=== PATIENT | female | born 1940 | race Caucasian/White ===

== ENCOUNTER 2017-05-20 13:53 | Inpatient (IN) | payer OTHER, MEDICARE ==
[~2017-05-20] VITALS: Ht 162.6 cm; Wt 88.0 kg
[~2017-05-20 13:53] MED LIST: ALPR.25 PO; CYAN1000P SQ; CYMB30CA PO; LEVO.125 PO; LISI-360 PO; LORTA5 PO; MAGN1SOL2 PO; NORC10TA2 PO; STOO100C PO; TRIA50 PO; ZOCO80TA PO
[2017-05-20] MEDS ORDERED: ROPI1TAB72 PO (16:01)
[2017-05-20] MEDS ORDERED: DULO1CAP3 PO (16:01)
[2017-05-20] MEDS ORDERED: LYRI75CA PO (16:01)
[2017-05-20] MEDS ORDERED: ALLO100T PO (16:07)
[2017-05-20] MEDS ORDERED: NORC5TAB (16:07)
[2017-05-20] MEDS ORDERED: CLOP75TA PO (16:14)
[2017-05-20] MEDS ORDERED: ASPI-516 PO (16:14)
[2017-05-20] MEDS ORDERED: [UNRECOGNIZED DRUG - CODE] IM (16:14)
[2017-05-20] MEDS ORDERED: TRIA37.53 PO (16:14)
[2017-05-20] MEDS ORDERED: POTA10CA PO (16:17)
[2017-05-20] MEDS ORDERED: TRIA1CAP6 PO (16:17)
[2017-05-20] MEDS ORDERED: LEVO175T2 PO (16:17)
[2017-05-20] MEDS ORDERED: LISI-519 PO (16:17)
[2017-05-20] MEDS ORDERED: ALUMINUM/MAGNESIUM/SIMETH 30 ML CUP PO PRN (17:45)
[2017-05-20] MEDS ORDERED: LORazepam 2 MG/ML VIAL IV PUSH PRN ×4 (17:45)
[2017-05-20] MEDS ORDERED: MAGNESIUM HYDROXIDE SUSP 30 ML CUP PO PRN (17:45)
[2017-05-20] MEDS ORDERED: ACETAMINOPHEN 325 MG TAB PO PRN (17:45)
[2017-05-20] MEDS ORDERED: diphenhydrAMINE HCL 50 MG CAP PO PRN (17:45)
[2017-05-20] MEDS ORDERED: LORazepam 1 MG TAB PO PRN (17:45)
[2017-05-20] MEDS ORDERED: LORazepam 2 MG TAB PO PRN (17:45)
[2017-05-20] MEDS ORDERED: diphenhydrAMINE HCL 50 MG/ML VIAL IM PRN (17:45)
[2017-05-20] MEDS ORDERED: FLUMAZENIL 0.5 MG/5 ML VIAL IV PUSH PRN (17:45)
[2017-05-20] MEDS ORDERED: NICOTINE 21 MG/24 HR PATCH T-DERMAL PRN (17:45)
[2017-05-20 17:49] VITALS: BP 132/75; PULSE 86; RESP 18; TEMP 98.6
[2017-05-20 18:21] VITALS: BP 132/75; PULSE 86; RESP 18; TEMP 98.6; O2SAT 100
[2017-05-20] MEDS ORDERED: ATORVASTATIN 40 MG TAB PO SCH (21:00)
[2017-05-21 05:35] VITALS: BP 136/62; PULSE 82; RESP 17; TEMP 96.9; O2SAT 98
[2017-05-21] MEDS ORDERED: LEVOTHYROXINE SODIUM 100 MCG TAB PO SCH (06:00)
[2017-05-21] MEDS ORDERED: LEVOTHYROXINE SODIUM 75 MCG TAB PO SCH ×2 (06:00)
[2017-05-21 07:55] LABS: ANION GAP 10 MEQ/L (5-15); BICARBONATE 22.5 MEQ/L (21.0-32.0); BLOOD UREA NITROGEN 18 MG/DL (7-18); CHLORIDE 99 MEQ/L (98-107); GLOMERULAR FILTRATION RATE 77 ML/MIN (>89); HDL CHOLESTEROL 82.4 MG/DL (40.0-60.0); LDL CHOLESTEROL 74 MG/DL (0-99); POTASSIUM 4.3 MEQ/L (3.5-5.1); SODIUM (NA) 131 MEQ/L (136-145)
[2017-05-21] MEDS ORDERED: ALLOPURINOL 100 MG TAB PO SCH (09:00)
[2017-05-21] MEDS ORDERED: TRIAMTERENE/HCTZ 37.5 MG/25 MG CAP PO SCH (09:00)
[2017-05-21] MEDS ORDERED: ASPIRIN 81 MG CHEW TAB PO SCH (09:00)
[2017-05-21] MEDS ORDERED: PREGABALIN 75 MG CAP PO SCH (09:00)
[2017-05-21] MEDS ORDERED: CLOPIDOGREL 75 MG TAB PO SCH (09:00)
[2017-05-21] MEDS ORDERED: LISINOPRIL 5 MG TAB PO SCH (09:00)
[2017-05-21] MEDS ORDERED: POTASSIUM CHLORIDE 10 MEQ CAP PO SCH (09:00)
[2017-05-21] MEDS ORDERED: DULoxetine HCl DR 60 MG CAP PO SCH (09:00)
[2017-05-21] MEDS ORDERED: INFLUENZA VIRUS VACCINE (QUADRIVALENT) 0.5 ML SYR IM ONE (10:00)
--- NOTE | 2017-05-21 10:12 | PD.CONS ---
HPI Service [facility] Consult Requested By Reason for Consult medical management. Primary Care Physician Rah Martin M.D. Diagnoses: History of Present Illness patient is a 76 y/o female with history of CVA, hypertension,hypothyroidism,who' s been admitted to the psych unit because of depression. she says that she was seen at [facility] a few times last week because of UTI. she says that the last time that she was there she said that ' she would just lay her head on the floor'- raised the concern about depression and suicidal thoughts for which she was sent to the psych unit. at the time of my evaluation she was resting comfortably with no distress. she denies any suicidal ideas at this time. she's complaining of some urinay urgency but with no dysuria or gross hematuria. otherwise with no chest pain, sob, cough, abdominal pain. of note she says that since she ' wasn't feeling fine she probably missed some of her levothyroxine doses'. Review of Systems Constitutional: DENIES: Fever, Weight loss, Chills, Night Sweats Eyes: DENIES: Blurred vision, Diplopia, Vision loss, Double Vision Ears, nose, mouth, throat: DENIES: Tinnitus, Vertigo, Throat pain, Epistaxis Respiratory: DENIES: Apneas, Cough, Snoring, Wheezing, Hemoptysis, Sputum production, Shortness of breath Cardiovascular: DENIES: Chest pain, Palpitations, Syncope, Dyspnea on Exertion , PND, Lower Extremity Edema, Orthopnea, Claudication Gastrointestinal: DENIES: Abdominal pain, Black stools, Bloody stools, Constipation, Diarrhea, Nausea, Vomiting, Difficulty Swallowing, Anorexia Genitourinary: COMPLAINS OF: Urgency, DENIES: Hematuria, Dysuria Musculoskeletal: DENIES: Joint pain, Muscle aches, Stiffness, Joint Swelling Integumentary: DENIES: Rash Neurologic: DENIES: Abnormal gait, Headache, Localized weakness, Paresthesias, Seizures, Speech Problems, Tremor, Poor Balance Psychiatric: DENIES: Anxiety, Confusion, Mood changes, Depression, Hallucinations, Agitation, Suicidal Ideation, Homicidal Ideation, Delusions Past Family Social History Allergies: Coded Allergies: ciprofloxacin (Unverified Allergy, Severe, HIVES, 02/06/17) diatrizoate meglumine (Unverified Allergy, Severe, HIVES, 02/06/17) ferrous fumarate (Unverified Allergy, Severe, HIVES, 02/06/17) ferrous sulfate (Unverified Allergy, Severe, HIVES, 02/06/17) ferumoxytol (Unverified Allergy, Severe, HIVES, 02/06/17) gadobenic acid (Unverified Allergy, Severe, HIVES, 02/06/17) gadodiamide (Unverified Allergy, Severe, HIVES, 02/06/17) gadoteridol (Unverified Allergy, Severe, HIVES, 02/06/17) iodixanol (Unverified Allergy, Severe, HIVES, 02/06/17) iohexol (Unverified Allergy, Severe, HIVES, 02/06/17) iron (Unverified Allergy, Severe, HIVES, 02/06/17) metronidazole (Unverified Allergy, Severe, HIVES, 02/06/17) multivitamin infusion, adult no.4 with vitamin K (Unverified Allergy, Severe, HIVES, 02/06/17) multivitamin with iron,other minerals (Unverified Allergy, Severe, HIVES, 02/06/17) penicillin G (Unverified Allergy, Severe, HIVES, 02/06/17) Sulfa (Sulfonamide Antibiotics) (Unverified Allergy, Unknown, 02/06/17) azithromycin (Unverified Allergy, Unknown, 02/06/17) doxycycline (Unverified Allergy, Unknown, 02/06/17) levofloxacin (Unverified Allergy, Unknown, 02/06/17) Past Medical History CVA hypertension hypothyroidism Past Surgical History knee surgery loop recorder placement colostomy Reported Medications aspirin plavix lipitor lisinopril triamterene/HCTZ lyrica allopurinol Active Ordered Medications Current Medications Diphenhydramine HCl (Benadryl) 25 mg Q6H PRN PO For mild anxiety and/or EPS; Start 05/20/17 at 17:45; Status Future Hold Diphenhydramine HCl (Benadryl Inj) 25 mg Q6H PRN IM For mild anxiety and/or EPS ; Start 05/20/17 at 17:45; Status Future Hold Acetaminophen (Tylenol) 650 mg Q4H PRN PO Pain 1-5 or Temp >101F; Start at 17:45 Magnesium Hydroxide (Milk Of Magnesia Liq) 30 ml DAILY PRN PO CONSTIPATION; Start 05/20/17 at 17:45 Al Hydrox/Mg Hydrox/Simethicone (Mag-Al Plus Susp Liq) 30 ml Q6H PRN PO DYSPEPSIA; Start 05/20/17 at 17:45 Nicotine (Habitrol 21 Mg Patch.24 Hr) 1 patch DAILY PRN T-DERMAL Nicotine craving; Start 05/20/17 at 17:45 Flumazenil (Romazicon Inj) 0.2 mg Q1M PRN IV PUSH SEE LABEL COMMENTS; Start at 17:45 Lorazepam (Ativan) 1 mg Q4H PRN PO CIWA 8 - 10; Start 05/20/17 at 17:45 Lorazepam (Ativan Inj) 1 mg Q4H PRN IV PUSH CIWA 8 - 10; Start 05/20/17 at 17: 45 Lorazepam (Ativan) 2 mg Q2H PRN PO CIWA 11-14; Start 05/20/17 at 17:45 Lorazepam (Ativan Inj) 2 mg Q2H PRN IV PUSH CIWA 11-14; Start 05/20/17 at 17: 45 Lorazepam (Ativan Inj) 2 mg Q1H PRN IV PUSH CIWA 15-20; Start 05/20/17 at 17: 45 Lorazepam (Ativan Inj) 2 mg Q15M PRN IV PUSH CIWA > 20; Start 05/20/17 at 17: 45 Allopurinol (Zyloprim) 100 mg DAILY PO Last administered on 05/21/17 09:49; Start 05/21/17 at 09:00 Aspirin (Aspirin Chew) 81 mg DAILY PO Last administered on 05/21/17 09:49; Start 05/21/17 at 09:00 Clopidogrel Bisulfate (Plavix) 75 mg DAILY PO Last administered on 05/21/17 09:48; Start 05/21/17 at 09:00 Duloxetine HCl (Cymbalta Dr) 120 mg DAILY PO Last administered on 05/21/17 09 :48; Start 05/21/17 at 09:00 Lisinopril (Prinivil) 5 mg DAILY PO Last administered on 05/21/17 09:49; Start 05/21/17 at 09:00 Potassium Chloride (KCl) 10 meq DAILY PO Last administered on 05/21/17 09:49 ; Start 05/21/17 at 09:00 Pregabalin (Lyrica) 75 mg DAILY PO Last administered on 05/21/17 09:49; Start 05/21/17 at 09:00 Ropinirole HCl (Requip) 1 mg HS PO Last administered on 05/20/17 22:00; Start 05/20/17 at 21:00 Triamterene/HCTZ (Dyazide 37.5-25 Mg) 1 cap DAILY PO Last administered on 05/21 09:49; Start 05/21/17 at 09:00 Atorvastatin Calcium (Lipitor) 40 mg HS PO Last administered on 05/20/17 22: 00; Start 05/20/17 at 21:00 Levothyroxine Sodium (Synthroid) 175 mcg DAILY@0600 PO ; Start 05/21/17 at 06: 00; Stop 05/21/17 at 06:00; Status DC Levothyroxine Sodium (Synthroid) 100 mcg DAILY@0600 PO Last administered on 05:43; Start 05/21/17 at 06:00 Levothyroxine Sodium (Synthroid) 75 mcg DAILY@0600 PO Last administered on 05:43; Start 05/21/17 at 06:00 Influenza Virus Vaccine (Flu (Quadrivalent) Vaccine Inj) 0.5 ml ONCE ONCE IM Last administered on 05/21/17 09:55; Start 05/21/17 at 10:00; Stop 05/21/17 at 10:01 Family History not relevant to this consult. Social History no smoking or drinking. Physical Exam Vital Signs Vital Signs Date Time Temp Pulse Resp B/P (MAP) Pulse Ox O2 Delivery O2 Flow Rate FiO2 05/21/17 05:35 96.9 82 17 136/62 (86) 98 05/20/17 18:21 98.6 86 18 132/75 (94) 100 05/20/17 17:49 98.6 86 18 132/75 (94) Physical Exam GENERAL: This is a well-nourished, well-developed patient, in no apparent distress. SKIN: No rashes, ecchymoses or lesions. Cool and dry. HEAD: Atraumatic. Normocephalic. No temporal or scalp tenderness. EYES: Pupils equal round and reactive. Extraocular motions intact. No scleral icterus. No injection or drainage. ENT: Nose without bleeding, purulent drainage or septal hematoma. Throat without erythema, tonsillar hypertrophy or exudate. Uvula midline. Airway patent. NECK: Trachea midline. No JVD or lymphadenopathy. Supple, nontender, no meningeal signs. CARDIOVASCULAR: Regular rate and rhythm without murmurs, gallops, or rubs. RESPIRATORY: Clear to auscultation. Breath sounds equal bilaterally. No wheezes , rales, or rhonchi. GASTROINTESTINAL: Abdomen soft, non-tender, nondistended. No hepato-splenomegaly , or palpable masses. No guarding. MUSCULOSKELETAL: Extremities without clubbing, cyanosis, or edema. No joint tenderness, effusion, or edema noted. No calf tenderness. Negative Homans sign bilaterally. NEUROLOGICAL: Awake and alert. Cranial nerves II through XII intact. Motor and sensory grossly within normal limits. Five out of 5 muscle strength in all muscle groups. Normal speech. Laboratory Laboratory Tests Test 05/21/17 06:44 Blood Urea Nitrogen 18 Creatinine 0.74 Random Glucose 110 Calcium Level 10.2 Sodium Level 131 Potassium Level 4.3 Chloride Level 99 Carbon Dioxide Level 22.5 Anion Gap 10 Estimat Glomerular Filtration Rate 77 Triglycerides Level 168 Cholesterol Level 190 LDL Cholesterol 74 HDL Cholesterol 82.4 Cholesterol/HDL Ratio 2.30 Thyroid Stimulating Hormone 3rd Gen 34.900 Result Diagram: 05/21/17 0644 Assessment and Plan Assessment and Plan A/P - suicidal thoughts- management per psych -history of CVA- resumed aspirin, plavix and statin -history of hypertension; resumed home meds; lisinopril/ Dyazide -hypothyroidism with elevated TSH- likely due to noncompliance ( says that she probably missed a few doses)- resumed Levothyroxine- repeat TSH in 2-3 weeks. -recent UTI- repeat UA thank you for the consult. Discussed Condition With the patient and RN. Lindsay Bran MD May 21, 2017 10:12
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
[2017-05-21 20:35] LABS: HEMOGLOBIN A1a 1.2 %; HEMOGLOBIN A1b 2.1 %; HEMOGLOBIN Ao 84.8 %; HEMOGLOBIN P3 3.6 %
== END 2017-05-21 13:15 | disposition home or self-care (01) | DRG 882 ==
LOC: H250 16:55 → H260 19:17
PROVIDERS: ADMIT Psychiatry & Neurology Psychiatry; ATTEND Psychiatry & Neurology Psychiatry
DX: F43.25 Adjustment disorder with mixed disturbance of emotions and conduct (principal); R45.851 Suicidal ideations; Z91.19 Patient's noncompliance with other medical treatment and regimen; I10 Essential (primary) hypertension; E66.9 Obesity, unspecified; E03.9 Hypothyroidism, unspecified; Z23 Encounter for immunization; Z68.33 Body mass index [BMI] 33.0-33.9, adult; Z86.73 Personal history of transient ischemic attack (TIA), and cerebral infarction without residual deficits; Z87.440 Personal history of urinary (tract) infections
CPT/HCPCS: 80048; 80061; 83036; 84443; 90686; Q2038

== ENCOUNTER 2017-12-12 06:12 | Day surgery (SDC) | payer OTHER ==
[2017-12-12] VITALS (9 sets, daily range): BP systolic 100–148; BP diastolic 52–71; PULSE 78–88; RESP 18; TEMP 97.6–98.5; O2SAT 98–99
[~2017-12-12] VITALS: Ht 160 cm; Wt 87.1 kg
[~2017-12-12 06:12] MED LIST changes: +ALLO100T PO; +ASPI-516 PO; +CLOP75TA PO; -CYAN1000P SQ; -CYMB30CA PO; +DULO1CAP3 PO; -LEVO.125 PO; -LISI-360 PO; +LISI-519 PO; -LORTA5 PO; +LYRI75CA PO; -MAGN1SOL2 PO; +NORC5TAB; +POTA10CA PO; +ROPI1TAB72 PO; -STOO100C PO; +TRIA1CAP6 PO; +TRIA37.53 PO; -TRIA50 PO; +[UNRECOGNIZED DRUG - CODE] IM
[2017-12-12] MEDS ORDERED: IODIXANOL 320 MG/ML 50 ML VIAL (for Cath Lab) OTHER ONE (06:13)
[2017-12-12] MEDS ORDERED: CHLORHEXIDINE GLUCONATE 2 % 1 PACK (2 CLOTHS) TOPICAL SCH (06:45)
[2017-12-12] MEDS ORDERED: VANCOMYCIN 1000 MG/NS 200 ML IV SCH (06:45)
[2017-12-12] MEDS ORDERED: NS 1000 ML IV SCH (06:45)
[2017-12-12] MEDS ORDERED: MUPIROCIN 2% OINT 1 APPLIC/GM SYR NASAL SCH (06:45)
[2017-12-12] MEDS ORDERED: SIMV40TA PO (06:57)
[2017-12-12] MEDS ORDERED: ALPR.25 PO (06:57)
[2017-12-12] MEDS ORDERED: ALLE60TA PO (06:57)
[2017-12-12] MEDS ORDERED: [UNRECOGNIZED DRUG - REMARK] PO (06:57)
[2017-12-12] MEDS ORDERED: LEVO125T4 PO (06:57)
[2017-12-12 08:04] LABS: AUTOMATED NEUTROPHIL # 3.6 TH/MM3 (1.8-7.7); BASOPHIL % 0.9 % (0.0-2.0); EOSINOPHIL # 0.2 TH/MM3 (0-0.4); EOSINOPHIL % 3.3 % (0.0-4.0); HEMATOCRIT 32.5 % (35.0-46.0); HEMOGLOBIN 10.8 GM/DL (11.6-15.3); LYMPH % 23.8 % (9.0-44.0); LYMPHOCYTE # 1.4 TH/MM3 (1.0-4.8); MEAN CELL VOLUME 88.2 FL (80.0-100.0); MEAN CORPUSCULAR HEMOGLOBIN 29.3 PG (27.0-34.0); MEAN CORPUSCULAR HGB CONC 33.2 % (32.0-36.0); MEAN PLATELET VOLUME 7.5 FL (7.0-11.0); MONO % 9.5 % (0.0-8.0); MONOCYTE # 0.5 TH/MM3 (0-0.9); NEUT % 62.5 % (16.0-70.0); PLATELET COUNT 213 TH/MM3 (150-450); RED BLOOD COUNT 3.69 MIL/MM3 (4.00-5.30); RED CELL DISTRIBUTION WIDTH 15.5 % (11.6-17.2); WHITE BLOOD COUNT 5.7 TH/MM3 (4.0-11.0)
[2017-12-12] MEDS ORDERED: METOPROLOL TARTRATE 25 MG TAB PO PRN (08:30)
[2017-12-12] MEDS ORDERED: LACTATED RINGER'S 1000 ML IV PRN (08:30)
[2017-12-12] MEDS ORDERED: SODIUM CHLORID 0.9% 500 ML IV PRN (08:30)
[2017-12-12 09:05] LABS: PROTHROMBIN TIME - PATIENT 10.4 SEC (9.8-11.6)
[2017-12-12 09:17] LABS: BICARBONATE 21.2 MEQ/L (21.0-32.0); CALCIUM 9.9 MG/DL (8.5-10.1); CREATININE 0.84 MG/DL (0.50-1.00)
[2017-12-12] MEDS ORDERED: PHENYLEPH/NS 1000 MCG/10 ML SYR IV ONE (12:00)
[2017-12-12] MEDS ORDERED: PROPOFOL 200 MG/20 ML AMP IV ONE (12:00)
[2017-12-12] MEDS ORDERED: LIDOCAINE HCL 1% PF 5 ML SYRINGE OTHER ONE (12:00)
--- NOTE | 2017-12-12 13:42 | EKG ---
Date Performed: 12/12/2017 Time Performed: 07:40:32 PTAGE: 77 years EKG: Possible ectopic atrial rhythm. Left axis deviation IV conduction defect Abnormal ECG PREVIOUS TRACING : 06/16/2015 14.24 DOCTOR: Jhon Crump Interpretating Date/Time 12/12/2017 13:41:45
[2017-12-12] MEDS ORDERED: HYDROCORTISONE SOD SUCCINATE 100 MG VIAL ONE (16:00)
[2017-12-12] MEDS ORDERED: diphenhydrAMINE HCL 50 MG/ML VIAL ONE (16:01)
[2017-12-12] MEDS ORDERED: FAMOTIDINE 20 MG/2 ML VIAL ONE (16:01)
[2017-12-12] MEDS ORDERED: HEPARIN-NS/PF INJ 500 ML ONE ×2 (16:04→16:21)
[2017-12-12] MEDS ORDERED: HEPARIN SODIUM - IV 10,000 UNITS/10 ML VIAL ONE (16:22)
[2017-12-12] MEDS ORDERED: MIDAZOLAM HCL 2 MG/2 ML VIAL ONE (17:18)
--- NOTE | 2017-12-12 17:30 | CATHPROC ---
Patient Name: FLAKO MILES Study #: [id number] Initial MD: Adrian Dolan Date of : 1940 Study Date: 12/12/2017 Cardiac Catheterization Report 12/12/2017 5:29:48 PM Financial #: [id number] 1 of 9 Patient Name: FLAKO MILES Study #: [id number] Initial MD: Adrian Dolan Date of : 1940 Study Date: 12/12/2017 Entire Case Report Patient Information Patient Name FLAKO MILES Date of 1940 Age 77 years Financial # [id number] Gender F AlternateID Lab Number 6 Room Number DC05 Height (in) 63.0 Height (cm) 160.0 BSA 1.90 Weight (lbs) 191.0 Weight (kg) 86.8 Patient Address/Phone Number Home Address [facility] Home Phone Number [phone] [facility] [id number] Study Information Study Number Admission Scheduled Start Study Start [id number] Dec 12 2017 6:12AM 12/12/2017 Dec 12 2017 3:43PM [place] [facility] Cardiac Pacer/ICD Admit Source Facility Department Other [facility] - [employer] Repairer Physician and Clinical Staff Initial Adrian Zapata Nuclear Technician Darling Turk,RN Nuclear Technician Bhupinder HoffmanRT(R) Other Anesthesia, LABEL PRESS OPERATOR Recorder Alissa Hernandez RN Scrub Melissa Rosales,RT(R) TECH2 12/12/2017 5:29:48 PM Financial #: [id number] 2 of 9 Patient Name: FLAKO MILES Study #: [id number] Initial MD: Adrian Dolan Date of : 1940 Study Date: 12/12/2017 Equipment Time Volunteer Coordinator Description Size Mfg Part Number Used/Scraped BIOSENSE REDDY [id number] 16:16 SET, TUBING COOLFLOW * Used INC. *[id number] 15:53 COOK/PACER DILATOR SET (MICRA) FR8-12 Used *[id number] WIRE, GUIDE AMPLATZ STIFF [id number] 15:53 COOK/PACER 3MMJ Used 180CM *[id number] 15:53 [employer] BLANKET,WARM AIR CCL * Used *[id number] 15:53 [employer] PACK, CCL CUSTOM * Used *[id number] 15:53 [employer] PACER ALLEN, LIMB * 2530 *[id number] Used [id number] 15:53 NAMIC TUBING, HIGH PRESSURE 20" 20" Used *[id number] 16:14 NYCOMED OMNIPAQUE, 350 MG, 50ML 50ML [id number] Used SUTURE, 0 ETHIBOND [CT1] (CX21D), 8pk 15:53 VITATRON MEDTRON[employer] MONITOR, PACEMAKER\\ICD 16464 *[id number] Used SYSTEM, TRANS-CATHETER [id number] 15:53 VITATRON [employer]ON[employer] Used PACING (MICRA) *[id number] SYSTEM, TRANS-CATHETER [id number] 16:16 VITATRON [employer] Used PACING (MICRA) *[id number] Insurance Information Insurance Payor Private Health Insurance Third Republican Third Republican Number [employer] [facility] 12/12/2017 5:29:48 PM Financial #: [id number] 3 of 9 Patient Name: FLAKO MILES Study #: [id number] Initial MD: Adrian Dolan Date of : 1940 Study Date: 12/12/2017 History: Allergies Allergy Reaction Sulfa (Sulfonamide Antibiotics) iohexol HIVES iron HIVES ferrous fumarate HIVES ferrous sulfate HIVES multivitamin with iron,other HIVES minerals diatrizoate meglumine HIVES doxycycline ciprofloxacin HIVES metronidazole HIVES azithromycin gadoteridol HIVES gadodiamide HIVES penicillin G HIVES iodixanol HIVES levofloxacin gadobenic acid HIVES ferumoxytol HIVES multivitamin infusion, adult no.4 HIVES with vitamin K History: Risk Factors Hypertension Yes Cerebrovascular Disease Labs Hgb (g/dl) Hct (%) RBC (MIL/MM3) WBC (l/cumm) Platelets (thousands) 11.60-17.00 35.00-51.00 4.00-5.90 4.00-11.00 150.00-450.00 10.8 32.5 3.7 5.7 213 Glucose (mg/dl) BUN (mg/dl) Creatinine (mg/dl) BUN:Creatinine (1:x) 74.00-106.00 7.00-18.00 0.50-1.30 10.00-20.00 87 27 0.8 33.8 Na (meq/l) K (meq/l) 136.00-145.00 3.50-5.10 140 4.4 12/12/2017 5:29:48 PM Financial #: [id number] 4 of 9 Patient Name: FLAKO MILES Study #: [id number] Initial MD: Adrian Dolan Date of : 1940 Study Date: 12/12/2017 INR (PTT:PT) 0.90-1.10 1 Medication Medication Total Dose (Bolus/Oral) Medication Total Dosage/Unit 1% XYLOCAINE 20 mL 2% XYLOCAINE 50 mL HEPARIN 3000 units Medications (Bolus/Oral) Medication Time Given Dosage/Unit Administered By Reason 1% XYLOCAINE 12/12/2017 4:32:20 PM 20 mL Adrian Dolan 20 mL 1% XYLOCAINE given in lab by Adrian Dolan via Subcutaneous. Ordered by Adrian Dolan. HEPARIN 12/12/2017 4:37:53 PM 3000 units Anesthesia, LABEL PRESS OPERATOR As per physicians toby bal order 3000 units HEPARIN given in lab by Anesthesia, LABEL PRESS OPERATOR via Peripheral IV. Ordered by Adrian Dolan. Reas on: As per physicians verbal order. 2% XYLOCAINE 12/12/2017 5:02:56 PM 50 mL Adrian Dolan 50 mL 2% XYLOCAINE given in lab by Adrian Dolan in Left upper chest via Subcutaneous. Ordered by Adrian Gale. Medication (Drip) Medication Time Given Dosage/Unit Concentration/Unit Diluent (ml) Solution VANCOMYCIN DRIP 12/12/2017 4:08:08 PM 1 g 1 g VANCOMYCIN DRIP given in lab by Anesthesia, LABEL PRESS OPERATOR via Peripheral IV. Ordered by Adrian Dolan. Rubi son: As per physicians verbal order. 12/12/2017 5:29:48 PM Financial #: [id number] 5 of 9 Patient Name: FLAKO MILES Study #: [id number] Initial MD: Adrian Dolan Date of : 1940 Study Date: 12/12/2017 Initial Case Assessment Cardiovascular HR NIBP 85 143/63 Edema Present Skin color Skin None Normal Warm Dry Circulatory - Right Pulses Dorsalis Pedis 1 Scale (0,1,2,3,4,d) Circulatory - Left Pulses Dorsalis Pedis 1 Scale (0,1,2,3,4,d) Circulatory - Lower Extremities Color Lower Right Color Lower Left Normal Normal Neurological State Oriented to time-place- Alert Moves all extremities person Respiration - General Respiration Rate SpO2 (%) (B/min) 16 98 12/12/2017 5:29:48 PM Financial #: [id number] 6 of 9 Patient Name: FLAKO MILES Study #: [id number] Initial MD: Adrian Dolan Date of : 1940 Study Date: 12/12/2017 Final Case Assessment Cardiovascular HR NIBP 79 95/51 Edema Present Skin color Skin None Normal Warm Dry Circulatory - Right Pulses Dorsalis Pedis 1 Scale (0,1,2,3,4,d) Circulatory - Left Pulses Dorsalis Pedis 1 Scale (0,1,2,3,4,d) Circulatory - Lower Extremities Color Lower Right Color Lower Left Normal Normal Neurological State Drowsy Moves all extremities Respiration - General Respiration Rate SpO2 (%) (B/min) 14 98 Chronological Log Time Study Chronological Log 16:01:59 Patient arrived via Bed. 16:02:48 Patient Name, D.O.B, / Armband Verified By R.N. 16:02:49 Consent signed by the physician and the patient and verified by the Mobile [employer] staff. 16:02:50 Pre-op and post- op instructions given; patient acknowledges understanding of instructions. 16:02:51 Anesthesia at bedside. Assumes care of patient. 16:02:53 Patient has been NPO for More than 6Hrs. 16:02:54 Skin Breakdown- none per pt 16:02:56 Patient Warmer Placed on the Table. 16:02:57 Disposable Defibrillator Pads Placed On Patient. 12/12/2017 5:29:48 PM Financial #: [id number] 7 of 9 Patient Name: FLAKO MILES Study #: [id number] Initial MD: Adrian Dolan Date of : 1940 Study Date: 12/12/2017 16:02:58 Ivette Prominences Protected 16:03:01 A # 22 IV was noted in the Hand (right). Grade = 0 0.9% NaCl @ KVO 16:03:02 A # 20 IV was noted in the Antecubital (left). Grade = 0 0.9% NaCl @ KVO 16:03:03 History and physical on the chart. Assessment: Initial Case, HR=85 BPM, QBPN=594/63 mmhg, Edema=None, Color=Normal, Skin = Warm, D ry Right Pulses: Lc Ped=1 Left Pulses: Lc Ped=1 16:05:13 Lower Right Extremities: Color=Normal Lower Left Extremities: Color=Normal Neurological: State=Alert, Ox3, SOTOMAYOR Respiration: Resp=16 B/min, SpO2=98 % 1 g VANCOMYCIN DRIP given in lab by Anesthesia, LABEL PRESS OPERATOR via Peripheral IV. Ordered by Marta Dolan Reason: As per 16:08:08 physicians verbal order. 16:12:50 Table restraints applied according to hospital policy 16:15:49 Reference ECG taken 16:17:37 2% CHLORHEXIDINE GLUCONATE WASH AND NASAL SWIPE DONE PRIOR TO PROCEDURE. 16:17:46 Bilateral groins prepped with 2% chlorhexidine, and draped after a 3 min. waiting time. 16:21:47 A sterile drape was applied after a 3 minute prep drying time. 16:23:32 MD paged 16:25:37 MD responded 16:28:14 MD arrived. Time Out. Correct patient, procedure, procedure equipment, site and side verified with physicia n present. Time 16:31:40 concurred by MD, individual staff and LABEL PRESS OPERATOR. Time Out #2 - Consents verified, patient in correct position, all results are labled and displa yed, fire and safety 16:32:18 precautions taken, antibiotics administered. Time out concurred by MD, individual staff and CRN A in procedure 16:32:19 Case Start 16:32:20 20 mL 1% XYLOCAINE given in lab by Adrian Dolan via Subcutaneous. Ordered by Adrian Dolan . 16:32:53 Vascular access was obtained in the Fem Vein (right). Wire inserted 16:34:00 16:34:38 A DILATOR SET (MICRA) FR8-12 was advanced into the Fem Vein (right) using the Modified Seld elvia technique. 16:35:15 The micra sheath was inserted via the right femoral vein using the modified seldinger techn ique. 16:35:19 Wire out. 3000 units HEPARIN given in lab by Anesthesia, LABEL PRESS OPERATOR via Peripheral IV. Ordered by Adrian Dolan . Reason: As per 16:37:53 physicians verbal order. 16:42:23 The micra pacemaker was inserted via rt femoral vein into position in the CS under fluorosc opy. 16:52:24 Pacer sensing tested per rep. Pacer set to VVI [address] Dolan's order by rep. 16:53:31 Device has been deployed. Delivery device removed. 16:54:07 Figure eight suture placed in right femoral vein groin site. Manual pressure being held for 20 minutes. 17:01:52 Left Upper Chest Prepped Times Two. 17:02:05 Site draped with sterile towels. 17:02:56 50 mL 2% XYLOCAINE given in lab by Adrian Dolan in Left upper chest via Subcutaneous. Orde red by Adrian Dolan. 12/12/2017 5:29:48 PM Financial #: [id number] 8 of 9 Patient Name: FLAKO MILES Study #: [id number] Initial MD: Adrian Dolan Date of : 1940 Study Date: 12/12/2017 17:03:33 Loop Recorder Removed. 17:03:54 Case End (Physician broke scrub) 17:04:06 Steri-strips and a sterile dressing applied to left chest site. 17:05:07 Implant Procedure was performed. 17:05:16 A PPM Implant . (Single) Micra 17:05:35 Bedside Report will be given. 17:05:44 No case complications noted. 17:05:45 Cine recording checked. 17:05:48 Holding Area notified of successful intervention. 17:05:51 Bedside Report will be given. Assessment: Final Case, HR=79 BPM, NIBP=95/51 mmhg, Edema=None, Color=Normal, Skin = Warm, Dry Right Pulses: Lc Ped=1 Left Pulses: Lc Ped=1 17:10:25 Lower Right Extremities: Color=Normal Lower Left Extremities: Color=Normal Neurological: State=Drowsy, SOTOMAYOR Respiration: Resp=14 B/min, SpO2=98 % 17:14:52 Sterile dressing applied to right groin site. 17:15:25 Defibrillator pads removed. Skin intact. 17:19:10 Patient moved to stretcher and transported on portable oxygen and monitors to [facility]. End Study - Contrast Media Used In Study Contrast Total Opened (mL) Total Used (mL) Total Wasted (mL) Unspecified 0 0 0 End Study - Maximum Contrast Load Max Contrast Load (mL) 542.6 End Study - Radiation Exposure Fluoro Time (minutes) 7.0 End Study - Patient Disposition Complications Transferred To No Telemetry Bed 12/12/2017 5:29:48 PM Financial #: [id number]
--- NOTE | 2017-12-12 17:53 | MP ---
cc: Adrian Dolan MD, Hanscy MD Herdel, George DATE OF OPERATION: 12/12/2017 PROCEDURE: Micra permanent pacemaker insertion and Loop record removal. INDICATIONS: Mrs. Velasquez is a 77-year-old female with episode of tachybrady syndrome, syncopal episode, pause observed on loop recorder insertion referred for permanent pacemaker insertion and loop removal. The risks, the nature and the benefits of the procedure are clearly stated to her. Risks include pneumothorax, cardiac perforation, need for open heart surgery and even . The patient understood and agreed to proceed. PROCEDURE IN DETAIL: After written informed consent was obtained, the patient was brought to the EP lab where she was prepped and draped in the usual sterile fashion. Conscious sedation was initiated and maintained throughout the procedure by the anesthesiologist. Once sedation verified, the right inguinal area was anesthetized with 2% Xylocaine. Using modified Seldinger technique, the right femoral vein was cannulated on 1 occasion; 1 guidewire was advanced. The stiff Amplatz was advanced all the way to the superior vena cava. Then, using #11 blade scalpel, a less than 1 cm incision was made. A 2-0 Vicryl suture was placed at the exit point at fashion to prevent bleeding. Then, the entry point was previously dilated using an 8, 12, 6 and then a 20 Albanian dilator. Then, Micra sheath was advanced and placed all the way at the right atrium. Then, the dilator was removed. The patient received 3000 units of heparin. Then, through the sheath the Micra delivery system was advanced. After multiple attempts, the lead was placed at the septal area. After adequate pacing and sensing threshold were obtaining, the Micra was released. The sheath and the dilator were removed. At that point, I did proceed with loop recorder removal. The left parasternal area was anesthetized with 2% Xylocaine. Using a #11 blade scalpel, a less than 1 cm incision was made. Subsequently, the loop was removed. The wound was reapproximated using Dermabond and Steri-Strips. No incident to report. The patient tolerated procedure. Blood loss minimal. EXPLANTED HARDWARE: The explanted loop recorder is a Medtronic. Please refer to previous dictation for information about lead serial number. IMPLANTED HARDWARE: The implanted Micra pacemaker is a Medtronic model # [id number], serial number [id number]. THRESHOLD: The right ventricular threshold in bipolar mode was 0.38 volts at 0.25 milliseconds, lead impedance 1100 ohm, R-wave at 7.3 millivolts. SETTING: The device set at VVI 50 CONCLUSION: Successful Micra insertion, loop recorder removal COMMENT AND RECOMMENDATIONS: The patient is going to be transferred to recovery room. Will be observed, can be discharged home later today. MD ALEJANDRO Roberts/ , 05:12 PM , 05:51 PM
[2017-12-12] MEDS ORDERED: DO NOT ADM ANY ANTICOAGULANT DRUGS PRN (18:15)
[2017-12-12] MEDS ORDERED: SODIUM CHLOR 0.9% 250 ML INJ 250 ML IV PRN (19:15)
[2017-12-12] MEDS ORDERED: BACITRACIN OINT 0.9 GM PKT TOP ONE (19:15)
[2017-12-12] MEDS ORDERED: ONDANSETRON ODT 4 MG TAB PO PRN (19:15)
[2017-12-12] MEDS ORDERED: ALPRAZolam 0.25 MG TAB PO PRN (19:15)
[2017-12-12] MEDS ORDERED: ATROPINE SULFATE 1 MG/ML VIAL IV PUSH PRN (19:15)
[2017-12-12] MEDS ORDERED: LORazepam 2 MG/ML VIAL IV PUSH PRN (19:15)
[2017-12-12] MEDS ORDERED: oxyCODONE/ACETAMINOPHEN 5 MG/325 MG TAB PO PRN (19:15)
[2017-12-12] MEDS ORDERED: LIDOCAINE HCL 1% 50 ML VIAL INFIL PRN (19:15)
[2017-12-12] MEDS ORDERED: PRAVASTATIN SOD 80 MG TAB PO SCH (21:00)
[2017-12-12] MEDS: oxyCODONE/ACETAMINOPHEN 5 MG/325 MG TAB PO PRN (21:33)
[2017-12-13] VITALS (19 sets, daily range): BP systolic 93–108; BP diastolic 48–56; PULSE 74–90; RESP 17–19; TEMP 97.4–98.4; O2SAT 94–99
[2017-12-13 05:21] LABS: PROTHROMBIN TIME - PATIENT 10.5 SEC (9.8-11.6)
[2017-12-13] MEDS ORDERED: LEVOTHYROXINE SODIUM 125 MCG TAB PO SCH (06:00)
[2017-12-13] MEDS: oxyCODONE/ACETAMINOPHEN 5 MG/325 MG TAB PO PRN (06:19)
[2017-12-13] MEDS ORDERED: ALLOPURINOL 100 MG TAB PO SCH (09:00)
[2017-12-13] MEDS ORDERED: POTASSIUM CHLORIDE 10 MEQ CAP PO SCH (09:00)
[2017-12-13] MEDS ORDERED: ASPIRIN 81 MG CHEW TAB PO SCH (09:00)
[2017-12-13] MEDS ORDERED: CLOPIDOGREL 75 MG TAB PO SCH (09:00)
[2017-12-13] MEDS ORDERED: DULoxetine HCl DR 60 MG CAP PO SCH (09:00)
[2017-12-13] MEDS ORDERED: LISINOPRIL 5 MG TAB PO SCH (09:00)
[2017-12-13] MEDS ORDERED: TRIAMTERENE/HCTZ 37.5 MG/25 MG CAP PO SCH (09:00)
[2017-12-13] MEDS ORDERED: PREGABALIN 75 MG CAP PO SCH (09:00)
[2017-12-13] MEDS ORDERED: LORATADINE 10 MG TAB PO SCH (09:00)
--- NOTE | 2017-12-13 14:39 | HHI.PR ---
Subjective Remarks Feeling ok Objective Vital Signs Date Time Temp Pulse Resp B/P (MAP) Pulse Ox O2 Delivery O2 Flow Rate FiO2 12/13/17 14:00 78 12/13/17 13:00 81 12/13/17 12:15 81 12/13/17 11:00 97.7 78 19 105/48 (67) 97 12/13/17 11:00 79 12/13/17 10:53 19 12/13/17 10:00 74 12/13/17 09:35 93/51 (65) 12/13/17 09:00 77 12/13/17 08:00 75 12/13/17 07:37 19 12/13/17 07:15 97.4 90 17 108/53 (71) 99 12/13/17 07:00 84 12/13/17 06:06 85 12/13/17 05:01 78 12/13/17 04:00 79 12/13/17 04:00 97.9 79 18 105/55 (72) 96 12/13/17 03:31 80 12/13/17 03:00 78 12/13/17 02:00 78 12/13/17 01:02 78 12/13/17 00:00 98.4 84 18 98/56 (70) 94 12/13/17 00:00 86 12/12/17 23:00 84 12/12/17 22:00 88 12/12/17 21:00 88 12/12/17 20:00 80 12/12/17 19:30 98.5 84 18 109/54 (72) 98 12/12/17 19:00 80 12/12/17 18:00 78 12/12/17 17:43 97.6 79 18 100/52 (68) 98 I/O 12/12/17 12/12/17 12/12/17 12/13/17 12/13/17 12/13/17 07:00 15:00 23:00 07:00 15:00 23:00 Intake Total 420 ml Output Total 700 ml Balance -280 ml Intake Oral 420 ml Output Urine Total 700 ml # Voids 1 # Bowel Movements 0 Result Diagram: 12/12/17 0755 12/12/17 0820 Imaging Alert, fully oriented Lungs: ventilated Heart: S1, S2 regular, no gallop Abdomen: soft, no mass Ext: no edema Current Medications Medications (Trade) Dose Ordered Sig/Amanda Route Start Time Stop Time Status Last Admin Sodium Chloride 1,000 ml @ 30 mls/hr Q24H IV 12/12/17 06:45 Vancomycin/Sodium Chloride 200 ml @ 250 mls/hr [employer] IV 12/12/17 06:45 12/15/17 06:44 (Bactroban Nasal 2% Oint) 1 applic [employer] NASAL 12/12/17 06:45 12/15/17 06:44 (Chlorhexidine 2% Cloth) 3 pack [employer] TOPICAL 12/12/17 06:45 12/15/17 06:44 Lactated Ringer's 1,000 ml @ 30 mls/hr Q24H PRN IV 12/12/17 08:30 12/15/17 08:29 Sodium Chloride 500 ml @ 30 mls/hr [id number] PRN IV 12/12/17 08:30 12/15/17 08:29 (Lopressor) 25 mg [employer] PRN PO 12/12/17 08:30 12/15/17 08:29 ([facility] [place] [facility]) ALL NURSING DEPARTME... UNSCH PRN .XX 12/12/17 18:15 12/13/17 18:14 (Percocet 5-325 Mg) 1 tab Q4H PRN PO 12/12/17 19:15 (Percocet 5-325 Mg) 2 tab Q4H PRN PO 12/12/17 19:15 12/13/17 06:19 (Ativan Inj) 0.5 mg UNSCH PRN IV PUSH 12/12/17 19:15 12/13/17 19:14 (Atropine Inj) 0.5 mg UNSCH PRN IV PUSH 12/12/17 19:15 Sodium Chloride 250 ml @ 500 mls/hr ONCE PRN IV 12/12/17 19:15 12/13/17 19:14 (Zofran Odt) 4 mg Q4H PRN PO 12/12/17 19:15 (Xylocaine 1% Inj (50 ml)) 10 ml UNSCH PRN INFIL 12/12/17 19:15 12/13/17 19:14 (Zyloprim) 100 mg DAILY PO 12/13/17 09:00 12/13/17 09:32 (Xanax) 0.25 mg Q8H PRN PO 12/12/17 19:15 (Aspirin Chew) 81 mg DAILY PO 12/13/17 09:00 12/13/17 09:31 (Plavix) 75 mg DAILY PO 12/13/17 09:00 12/13/17 09:32 (Cymbalta Dr) 120 mg DAILY PO 12/13/17 09:00 12/13/17 09:31 (Synthroid) 125 mcg DAILY@0600 PO 12/13/17 06:00 12/13/17 06:13 (Prinivil) 5 mg DAILY PO 12/13/17 09:00 (KCl) 10 meq DAILY PO 12/13/17 09:00 12/13/17 09:32 (Lyrica) 75 mg DAILY PO 12/13/17 09:00 12/13/17 09:32 (Requip) 1 mg HS PO 12/12/17 21:00 12/12/17 21:40 (Dyazide 37.5-25 Mg) 1 cap DAILY PO 12/13/17 09:00 (Claritin) 10 mg DAILY PO 12/13/17 09:00 12/13/17 09:32 (Pravachol) 80 mg HS PO 12/12/17 21:00 12/12/17 21:33 Patient Own Medication PT OWN MED: Triamter... BID PO 12/12/17 21:00 Future Hold Assessment and Plan Problem List: (1) Pacemaker ICD Codes: Z95.0 - Presence of cardiac pacemaker Plan: SP MICRA . Doing well Can be DH today Device well functioning (2) Syncope ICD Codes: R55 - Syncope and collapse Plan: No new episode reported Adrian Dolan MD Dec 13, 2017 14:39
--- NOTE | 2017-12-13 18:46 | EKG ---
Date Performed: 12/12/2017 Time Performed: 19:39:36 PTAGE: 77 years EKG: Sinus rhythm with 1st degree A-V block Left anterior fascicular block IV conduction defect Low QRS voltages in pr ecordial leads Abnormal ECG Since the PREVIOUS TRACING , no significant change noted PREVIOUS TRACIN12/12/2017 07.40 DOCTOR: Juana Angel Interpretating Date/Time 12/13/2017 18:44:51
--- NOTE | 2017-12-13 18:47 | EKG ---
Date Performed: 12/13/2017 Time Performed: 06:12:48 PTAGE: 77 years EKG: Sinus rhythm with 1st degree A-V block. Left axis deviation IV conduction defect Lateral T wave changes are nonsp ecific Abnormal ECG Since the PREVIOUS TRACING , no significant change noted PREVIOUS TRACIN12/12/2017 19.39 DOCTOR: Juana Angel Interpretating Date/Time 12/13/2017 18:45:01
== END 2017-12-13 15:50 | disposition home or self-care (01) ==
LOC: HDOC 06:12 → HDIC 06:13 → HCPC 18:31 → HDOC 12-13 15:50
PROVIDERS: ATTEND Internal Medicine Interventional Cardiology
DX: I44.0 Atrioventricular block, first degree (principal); I44.4 Left anterior fascicular block; I49.5 Sick sinus syndrome; I10 Essential (primary) hypertension; E78.5 Hyperlipidemia, unspecified; R06.02 Shortness of breath; E83.52 Hypercalcemia; Z00.6 Encounter for examination for normal comparison and control in clinical research program
CPT/HCPCS: 00530; 0387T; 33284; 76937; 80048; 85025; 85610; 85730; 86850; 86900; 86901; 93005; C1786; J1200; J1644; J1720; J2250; J2370; Q9967